=== PATIENT | female | born 1960 ===

== ENCOUNTER 2021-04-06 10:55 | Outpatient (CLI) | payer OTHER | END 2021-04-06 10:56 | disposition home or self-care (01) | LOC: BICMRI 10:55 | PROVIDERS: ATTEND Family Medicine | DX: Z12.31 Encounter for screening mammogram for malignant neoplasm of breast (principal); M54.2 Cervicalgia; Z80.3 Family history of malignant neoplasm of breast; Z85.820 Personal history of malignant melanoma of skin; Z98.890 Other specified postprocedural states | CPT/HCPCS: 72141; 77063; 77067 ==